=== PATIENT | female | born 2000 | race Caucasian/White ===

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

== ENCOUNTER 2019-09-11 18:44 | Emergency (ER) | payer BC, OTHER ==
--- NOTE | 2019-09-11 19:30 | UC ---
UC Telehealth HPI HPI Summary: 18 yo with 3 to 4 days of cough, with increase in wheeze and shortness of breath overnight last night which disrupted her sleep. She has used albuterol but did not feel that she got good effect from it. Hx of pneumonia 04/2019, clinical dx, no cxr done at the time. No hx of steroid need or admissions for asthma. No smoke exposure. 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 No nausea, vomiting or diarrhea. UC Telehealth PMH Previously Healthy: Yes Respiratory History: Reports: Hx Asthma Psychiatric History: Reports: Hx Anxiety, Hx Depression - Surgical History Surgery Procedure, Year, and Place: tonsillectomy. adrenal gland cyst removed Infectious Disease History: No - Family History Known Family History: Positive: Unknown - Adopted. Adoptive mother has chronic MRSA pneumonia/immune suppression Negative: Cardiac Disease, Hypertension - Social History Occupation: Employed Full-time Alcohol Use: None Substance Use Type: Reports: None Smoking Status (MU): Never Smoked Tobacco UC Telehealth ROS All Other Systems Reviewed And Are Negative: Yes Positive: Fever, Fatigue Eyes: Negative ENT: Negative Cardiovascular: Negative Positive: Shortness Of Breath, Cough, Other - wheeze Gastrointestinal: Negative Genitourinary: Negative Musculoskeletal: Negative Skin: Negative Neurological/Mental Status: Negative Negative: Headache Psychological: Normal [facility] Telehealth PE Telehealth Physical Exam: Patient consented to Telehealth visit, and deemed appropriate based on mild symptoms. Appears comfortably seated in her car without obvious distress, good color, speaking in full sentences. Appearance: Positive: Well-Appearing Telehealth Course/Dx Assessment/Plan: respiratory illness with fever and mild shortness of breath, hx of asthma. Appropriate for COVID testing and continued use of albuterol. Aware will be on isolation until results are known. Provider Diagnoses: Bronchitis UC Telehealth Disposition Provider Recommendation for Treatment: Urgent Care Telehealth Visit: Patient Consented Verbally to Telehealth Visit Telehealth Patient Statement: The patient should understand that they are communicating with their provider via a secure communication platform and that all the same privacy and confidentiality rules apply. They will also be responsible for copayments or coinsurances that apply to any Telehealth visit. Patient Identifiers: 2 Patient Identifiers Verified for Telehealth Visit - name and date of Telehealth Visit Start Time: 19:20 Telehealth Visit End Time: 19:30 Telehealth Provider Attestation: The above services were appropriate to provide in a Telehealth setting.
== END 2019-09-11 19:50 | disposition home or self-care (01) ==
LOC: UCCORT 18:44
DX: J45.909 Unspecified asthma, uncomplicated (principal); Z20.828 Contact with and (suspected) exposure to other viral communicable diseases; F41.9 Anxiety disorder, unspecified; F32.9 Major depressive disorder, single episode, unspecified; Z79.899 Other long term (current) drug therapy
CPT/HCPCS: 87635; 99211; G0463